=== PATIENT | female | born 1940 | race Caucasian/White ===

== ENCOUNTER → 2016-05-09 | Outpatient (CLI) | payer OTHER, BC ==
[~2016-05-09] MED LIST: AMLODIPINE-BEN1 EAC3 PO; ASPIRIN EC81 M1 PO; BYSTOLIC10 MG PO; DEXILANT60 MG PO; FLEXERIL PO; GLUCOPHAGE500 MG PO; HYDROCHLOROTHIA25 M1 PO; LEVOTHYROXINE0.05 MG PO; LIVALO2 MG PO; ULTRAM 50MG TAB50 MG PO
== END ==
LOC: CAT 05:01 → RAD 10:07 → CAT 17:40
DX: R63.0 Anorexia (principal); R11.0 Nausea; R63.4 Abnormal weight loss; E11.9 Type 2 diabetes mellitus without complications; K76.89 Other specified diseases of liver; R91.8 Other nonspecific abnormal finding of lung field

== ENCOUNTER → 2016-10-21 | Outpatient (CLI) | payer OTHER, BC ==
[2016-10-21] VITALS (8 sets, daily range): BP systolic 105–161; BP diastolic 55–79
[~2016-10-21] VITALS: Ht 152.4 cm; Wt 60.8 kg
--- NOTE | ~2016-10-21 | S ---
[facility] [place] [address] SURGICAL PATH RPT PROCEDURE Name: ALFONZO ROJAS Room #: [facility].#: [id number] Admission: 10/21/16 Date of : 36 Discharge: Report #: [id number] Path Case #: [id number] PATHOLOGY REPORT COLLECTION DATE: 10/21/2016 RECEIVED DATE: 10/21/2016 SUBMITTING PHYS: Dr. Sonu Reeder OTHER PHYS: SPECIMEN(S) RECEIVED: A.Left lobe 3 cores * * * * * * * * * * * * FINAL DIAGNOSIS: Liver, needle core biopsy: - Mixed septal/portal chronic inflammation with mild interface activity comprised of a lymphocytic infiltrate (grade 2-3), markedly expanded septae including nodule formation in a few areas (stage 3-4). COMMENT: Examination shows expanded septae as well as nodule formation in two of the three cores submitted for examination. There is mixed septal/portal chronic inflammation present comprised of occasional neutrophils, rare eosinophils, and lymphocytes. Predominance of plasma cells or lymphoid aggregate formation is not identified. There is mild interface activity present. Hepatocyte cat formation is not identified. The septae show prominent bile ductules focally with reactive changes. Active cholangitis is not identified. The hepatocytes in Zone 1 show ballooning, mild steatosis (less than 10 percent) with poorly formed Radha-Denk bodies in Zone 1. Rare areas of lobular inflammatory foci associated with lipofuscin pigment consistent with injury are identified. The Zone 3 vessels or sinusoids where not involved in septa formation are unremarkable. There are no florid-duct lesions, or sclerosing lesions of the bile ducts identified. There are no granulomata identified within the portal tracts/septae. 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 Reticulin stain - Negative for sclerosing lesions, and supports the findings identified on trichrome stain. Iron stain - Negative. PAS with and without diastase - Negative for intracytoplasmic globules in Zone 1. Overall based on morphology, the features support the nodularity (identified on the CT scan). Areas of uninvolved liver parenchyma are present as well. The etiology for the process may be prior [facility] [address] [place] [address] SURGICAL PATH RPT PROCEDURE Name: ALFONZO ROJAS Room #: [facility].#: [id number] Admission: 10/21/16 Date of : 36 Discharge: Report #: [id number] Path Case #: [id number] injury due to steatohepatitis, or medication induced injury. Active steatohepatitis is not identified in the current needle core biopsy. This simply may be due to sampling. It is difficult to exclude autoimmune hepatitis based on the morphologic features, although definite features to support autoimmune hepatitis (both by clinical parameters as well as histologic parameters) are not present. The positive autoimmune markers may be a nonspecific finding, or may be related to drug-induced liver injury. Clinical correlation is required. (IUV:gino; 10/23/2016) PATHOLOGIST: Hillayr Muller M.D. REPORT ELECTRONICALLY SIGNED BY: Hillary Muller M.D. DATE/TIME: 10/23/2016 16:34 * * * * * * * * * * * * GROSS PATHOLOGY: Received in formalin labeled "Alfonzo Rojas, liver BX," are 3 distinct needle cores of kathleen soft tissue ranging from 1.0 to 1.8 cm in length, which are submitted entirely in cassette A1. (BALTAZAR; 10/22/2016) CLINICAL HISTORY: R/O cirrhosis, nodular appearance on CT scan. No history of alcohol use. History of thrombocytopenia and anemia. Per H and P notes by Dr. Ryan, liver function tests from April 2016 were all normal including total bilirubin, alk-phos, AST, and ALT. Subsequent workup by Dr. Reeder included additional testing in June and September of 2016. Iron and TIBC within normal limits, hepatitis panel including hepatitis A, hepatitis B core, hepatitis B surface, and hepatitic C virus were all negative. Transferrin saturation negative. TIRE RETREADER antibodies within normal limits, Luis antibodies within normal limits, anti-DNA positive (32 IU/mL, ASMA-26 (mildly elevated or weak positive), AM negative, ceruloplasmin within normal limits, serum ferritin within normal limits, ASMA repeated in September elevated to 30 (reference range 0-19). INITIAL CPT CODE(S): A; 69808, 42173, 15048, 24885, 50161, 33775 Professional services performed by [facility] at [facility] [address], [place] [address] Technical services performed by [facility] at [address] [place] [address], [address], [place] [address]. [facility] [address] [place] [address] SURGICAL PATH RPT PROCEDURE Name: ALFONZO ROJAS Room #: ALIDA Manuel#: [id number] Admission: 10/21/16 Date of : 36 Discharge: Report #: [id number] Path Case #: [id number] [facility] [address] [place] [address] PHONE: [phone] DIRECTOR: Refugio Knox M.D. * * * END OF REPORT * * *
[2016-10-21 07:52] LABS: HEMATOCRIT 38.5 % (37.0-47.0); HEMOGLOBIN 12.9 gm/dL (12.0-15.0); MCH 27.9 pg (26.0-34.0); MCHC 33.4 g/dL (28.0-37.0); MCV 83.5 fL (80.0-100.0); RBC 4.62 mil/uL (4.20-5.00); RDW 16.7 % (10.5-14.5); WBC 3.1 thou/uL (4.0-11.0)
[2016-10-21 08:16] LABS: INR 1.1; PROTIME 11.5 Seconds (9.3-11.4)
[2016-10-21 08:33] LABS: CALCIUM 9.3 mg/dL (8.5-10.1); CREATININE 0.8 mg/dL (0.6-1.0); POTASSIUM 3.7 mmol/L (3.5-5.1)
== END | disposition home or self-care (01) ==
LOC: ULTRA 07:22
PROVIDERS: Specialist
DX: K75.9 Inflammatory liver disease, unspecified (principal)

== ENCOUNTER → 2019-04-21 | Outpatient (CLI) | payer OTHER, BC ==
[~2019-04-21] MED LIST changes: +NEXIUM40 MG PO
== END ==
LOC: BC 11:34
DX: Z12.31 Encounter for screening mammogram for malignant neoplasm of breast (principal)

== ENCOUNTER → 2019-04-27 | Outpatient (CLI) | payer OTHER, BC | END | disposition home or self-care (01) | LOC: SJCVC 10:23 | DX: I25.10 Atherosclerotic heart disease of native coronary artery without angina pectoris (principal); E78.00 Pure hypercholesterolemia, unspecified; E11.9 Type 2 diabetes mellitus without complications; I10 Essential (primary) hypertension; D64.9 Anemia, unspecified; Z90.710 Acquired absence of both cervix and uterus; Z82.49 Family history of ischemic heart disease and other diseases of the circulatory system; Z83.3 Family history of diabetes mellitus; Z79.84 Long term (current) use of oral hypoglycemic drugs ==

== ENCOUNTER → 2019-06-06 | Outpatient (CLI) | payer OTHER, BC | LOC: SJCVCIMAG 07:47 | DX: I08.8 Other rheumatic multiple valve diseases (principal); R00.0 Tachycardia, unspecified; I25.10 Atherosclerotic heart disease of native coronary artery without angina pectoris; E11.9 Type 2 diabetes mellitus without complications; I11.9 Hypertensive heart disease without heart failure; E78.5 Hyperlipidemia, unspecified; Z79.899 Other long term (current) drug therapy ==

== ENCOUNTER → 2020-05-03 | Outpatient (CLI) | payer OTHER, BC | LOC: BC 07:52 | PROVIDERS: ATTEND Family Medicine | DX: Z12.31 Encounter for screening mammogram for malignant neoplasm of breast (principal) ==

== ENCOUNTER → 2020-06-15 | Outpatient (CLI) | payer OTHER, BC | LOC: MRI 11:42 → CAT 12:14 | PROVIDERS: ATTEND Family Medicine | DX: M50.121 Cervical disc disorder at C4-C5 level with radiculopathy (principal); M47.22 Other spondylosis with radiculopathy, cervical region; M25.78 Osteophyte, vertebrae; M40.56 Lordosis, unspecified, lumbar region ==

== ENCOUNTER 2020-08-28 08:32 | Emergency (ER) | payer OTHER, BC ==
[~2020-08-28] VITALS: Ht 152.4 cm; Wt 63.5 kg
[2020-08-28] MEDS ORDERED: LOTREL 5-20 MG1 EACH PO (09:03)
[2020-08-28] MEDS ORDERED: TYLENOL325 MG PO (09:03)
[2020-08-28 09:04] LABS: URINE BILIRUBIN NEGATIVE (Negative); URINE BLOOD NEGATIVE (Negative); URINE CLARITY CLEAR; URINE COLOR YELLOW; URINE GLUCOSE-RANDOM* NEGATIVE (Negative); URINE KETONES NEGATIVE (Negative); URINE LEUKOCYTES-REFLEX NEGATIVE (Negative); URINE NITRITE-REFLEX NEGATIVE (Negative); URINE PROTEIN (DIPSTICK) NEGATIVE (Negative); URINE SPECIFIC GRAVITY <= 1.005 (1.005-1.035)
[2020-08-28 09:04] LABS: ABSOLUTE NEUTROPHILS 2.9 thou/uL (1.4-8.2); BASOPHILS 0.6 % (0.0-2.0); EOSINOPHILS 1.7 % (0.0-3.0); HEMOGLOBIN 11.9 gm/dL (12.0-15.0); LYMPHOCYTES 20.4 % (24.0-44.0); MCH 29.6 pg (26.0-34.0); MCHC 33.1 g/dL (28.0-37.0); MCV 89.5 fL (80.0-100.0); MONOCYTES 15.4 % (1.0-8.0); PLATELET COUNT 132 thou/uL (150-400); POLYS 61.9 % (36.0-66.0); RBC 4.02 mil/uL (4.20-5.00); RDW 20.5 % (10.5-14.5); WBC 4.7 thou/uL (4.0-11.0)
[2020-08-28] MEDS ORDERED: NEXIUM20 MG PO (09:04)
[2020-08-28] MEDS ORDERED: VITAMIN B-121000 MC2 SUBLING (09:04)
[2020-08-28] MEDS ORDERED: PRAVACHOL40 MG PO (09:05)
[2020-08-28 09:11] LABS: ANION GAP 13 mmol/L (7-16); BUN 11 mg/dL (7-18); CALCIUM 8.7 mg/dL (8.5-10.1); CHLORIDE 94 mmol/L (98-107); CO2 24 mmol/L (21-32); GLUCOSE 121 mg/dL (74-106); POTASSIUM 3.2 mmol/L (3.5-5.1); SODIUM 131 mmol/L (136-145)
[2020-08-28 09:22] LABS: ALBUMIN 3.4 g/dL (3.4-5.0); AMYLASE 46 U/L (25-115); LIPASE 119 U/L (73-393); MAGNESIUM 1.6 mg/dL (1.8-2.4); SGOT 40 U/L (15-37); SGPT 32 U/L (30-65); TOTAL BILIRUBIN 1.8 mg/dL (0.2-1.0); TROPONIN-I <0.06 ng/mL (<0.06)
[2020-08-28 11:45] VITALS: BP 102/49
--- NOTE | 2020-08-28 13:08 | EKG ---
[address] [place] [address] ELECTROCARDIOGRAM REPORT Name: ALFONZO ROJAS [id number] Admission: 08/28/20 Attend Phys: Discharge: 08/28/20 Date of : 36 Report #: [id number] [facility] ED Test Date: 2020-08-28 Test Time: 08:57:20 Pat Name: ALFONZO ROJAS Department: Room: Gender: F Bariatric Coordinator: devon rivera : 1940 Requested By: Oli Tierney Order Number: [id number] MD: José Antonio Guillermo Measurements Intervals Sunshine Rate: 78 P: 70 CO: 171 QRS: 3 QRSD: 97 T: 0 QT: 420 QTc: 479 Interpretive Statements Sinus rhythm Compared to ECG 04/13/2011 07:59:30 No significant changes Electronically Signed On 08-28-2020 13:08:11 CDT by José Antonio Guillermo [email or web address] <ELECTRONICALLY SIGNED> By: José Antonio Guillermo MD 08/28/20 [id number] MD RONNIE Medellin
== END 2020-08-28 11:45 | disposition home or self-care (01) ==
LOC: ER 08:32
PROVIDERS: Emergency Medicine
DX: E87.6 Hypokalemia (principal); E83.42 Hypomagnesemia; E11.9 Type 2 diabetes mellitus without complications; I10 Essential (primary) hypertension; K21.9 Gastro-esophageal reflux disease without esophagitis; Z90.711 Acquired absence of uterus with remaining cervical stump; Z90.49 Acquired absence of other specified parts of digestive tract; Z98.890 Other specified postprocedural states; Z79.899 Other long term (current) drug therapy; Z91.041 Radiographic dye allergy status; Z88.8 Allergy status to other drugs, medicaments and biological substances; Z88.1 Allergy status to other antibiotic agents

== ENCOUNTER → 2020-09-05 | Outpatient (CLI) | payer OTHER, BC ==
[~2020-09-05] MED LIST changes: +LOTREL 5-20 MG1 EACH PO; +NEXIUM20 MG PO; +PRAVACHOL40 MG PO; +TYLENOL325 MG PO; +VITAMIN B-121000 MC2 SUBLING
== END ==
LOC: ULTRA 08:13
PROVIDERS: ATTEND Family Medicine
DX: K76.0 Fatty (change of) liver, not elsewhere classified (principal); R16.1 Splenomegaly, not elsewhere classified; K74.60 Unspecified cirrhosis of liver; R18.8 Other ascites; K76.9 Liver disease, unspecified

== ENCOUNTER → 2020-09-27 | Outpatient (CLI) | payer OTHER, BC | LOC: MRI 09:36 | PROVIDERS: ATTEND Family Medicine | DX: K74.60 Unspecified cirrhosis of liver (principal); K76.9 Liver disease, unspecified; R18.8 Other ascites ==

== ENCOUNTER → 2020-12-05 | Outpatient (CLI) | payer OTHER, BC | LOC: SJCVC 07:32 | PROVIDERS: ATTEND Internal Medicine Cardiovascular Disease | DX: I25.10 Atherosclerotic heart disease of native coronary artery without angina pectoris (principal); I10 Essential (primary) hypertension; E78.00 Pure hypercholesterolemia, unspecified; R16.0 Hepatomegaly, not elsewhere classified; E11.9 Type 2 diabetes mellitus without complications; D50-D89 Diseases of the blood and blood-forming organs and certain disorders involving the immune mechanism; Z79.84 Long term (current) use of oral hypoglycemic drugs; Z79.899 Other long term (current) drug therapy ==

== ENCOUNTER → 2021-01-14 | Outpatient (CLI) | payer OTHER, BC | LOC: MRI 07:30 | PROVIDERS: ATTEND Family Medicine | DX: K74.60 Unspecified cirrhosis of liver (principal); R16.0 Hepatomegaly, not elsewhere classified ==